=== PATIENT | male | born 1990 | race Caucasian/White ===

== ENCOUNTER 2018-07-01 08:35 | Emergency (ER) | payer OTHER ==
[~2018-07-01] VITALS: Ht 175.3 cm; Wt 70.9 kg
[2018-07-01 08:38] VITALS: Ht 175.3 cm; Wt 70.9 kg
[2018-07-01] MEDS ORDERED: ONDANSETRON 4 MG INJ IV STA (09:05)
[2018-07-01] MEDS ORDERED: HYDROmorphONE 1 MG/ML SYG IV STA (09:05)
[2018-07-01] MEDS ORDERED: SOD CHLORIDE 0.9% 1,000 ML IV STA (09:05)
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
[2018-07-01] MEDS ORDERED: IOHEXOL 300MG/ML 150 ML BTL ONE (10:15)
[2018-07-01] MEDS ORDERED: SOD CHLORIDE 0.9% 100 ML ONE (10:15)
[2018-07-01] MEDS ORDERED: POTASSIUM CHLORIDE (SR) 20 MEQ TAB PO STA (12:33)
[2018-07-01] MEDS ORDERED: HYDR-4011 PO (13:16)
[2018-07-01] MEDS ORDERED: ONDA4TAB14 PO (13:16)
[2018-07-01 14:10] VITALS: BP 108/71; PULSE 102; RESP 16
== END 2018-07-01 14:14 | disposition home or self-care (01) ==
LOC: E/R 08:35
DX: R10.84 Generalized abdominal pain (principal); R11.2 Nausea with vomiting, unspecified
CPT/HCPCS: 36415; 74177; 80053; 83690; 85025; 96361; 96374; 96375; J1170; J2405; J7030; Q9967; Z7502; Z7610